=== PATIENT | male | born 1990 | race Caucasian/White ===

== ENCOUNTER 2023-11-19 10:14 | Emergency (ER) | payer OTHER, SELFPAY ==
--- NOTE | 2023-11-19 10:23 | XR_ITS ---
FINAL REPORT CLINICAL HISTORY: fever, productive cough COMPARISON: 03/19/2019 FINDINGS: The cardiac silhouette is normal. The mediastinal and hilar structures are unremarkable. The lungs are clear. There is no pneumothorax. IMPRESSION: No acute cardiopulmonary process. Reviewed, Interpreted and Dictated by Elham Wesley MD Transcribed by LELO Nichols Authenticated and [facility]
[2023-11-19 10:25] VITALS: BP 126/78; PULSE 111; RESP 16; TEMP 37.6; O2SAT 97; BMI 19.0
--- NOTE | 2023-11-19 10:25 | ED_ITS ---
Discharge Plan Disposition Patient Disposition: Home, Self-Care Condition: Good Prescriptions Prescriptions: New ondansetron 4 mg tablet,disintegrating 4 mg PO Q6H PRN (Reason: nausea and vomiting) Qty: 14 0RF guaifenesin [Mucinex] 600 mg tablet extended release 12hr 600 mg PO BID PRN (Reason: cough) Qty: 10 0RF No Action bupropion HCl 150 MG tablet sustained-release 12 hr 150 mg PO DAILY mirtazapine 15 MG tablet 15 mg PO DAILY prazosin 1 MG capsule 1 mg PO DAILY Referrals Follow up/Referrals: Provider,Referral, [Primary Care Provider] - See instructions Clinical Impressions Clinical Impression: Viral infection Instructions Patient Instructions: DI for Viral Upper Respiratory Infection -- Adult Discharge ED Provider: Tim Garcia General Adult HPI General Chief complaint: Upper Respiratory Infection Stated complaint: fever, vomiting Time Seen by Provider: 11/19/23 10:18 History of Present Illness HPI narrative: Patient is an otherwise healthy 33-year-old male presenting due to nausea and vomiting. Patient's mother is present to help provide history. Patient states for the past 4 days he has had continuous nausea and vomiting. He has also had subjective fevers and chills and bodyaches. Notes he has had pain in his chest which radiates to the throat, believes this is due to vomiting. States he has had cough productive of brownish sputum. Denies any diarrhea. States he has been able to urinate but has noticed foul odor. Denies any dysuria. Denies any significant abdominal pain. States he took ibuprofen at home which helped slightly. He is unsure of any sick contacts. Denies any medications today prior to arrival. Related Data Home Medications Medication Instructions Recorded Confirmed prazosin 1 mg capsule 1 mg PO DAILY ptsd 01/09/18 03/19/19 bupropion HCl 150 mg tablet,12 hr 150 mg PO DAILY Depression 03/19/19 03/19/19 sustained-release mirtazapine 15 mg tablet 15 mg PO DAILY Insomnia 03/19/19 03/19/19 Previous Rx's Medication Instructions Recorded guaifenesin 600 mg tablet, 600 mg PO BID PRN cough #10 tabs 11/19/23 extended release 12 hr (Mucinex) ondansetron 4 mg disintegrating 4 mg PO Q6H PRN nausea and 11/19/23 tablet vomiting #14 tabs Allergies Allergy/AdvReac Type Severity Reaction Status Date / Time amoxicillin [AMOXICILLIN] Allergy Unknown Verified 01/09/18 16:05 ceftizoxime [CEFTIZOXIME] Allergy Unknown Verified 01/09/18 16:05 Penicillins [PENICILLINS] Allergy Unknown Verified 01/09/18 16:05 [facility] Disclaimer: The information contained in this section may have been updated after the patient was seen, as this information can be updated by other users. Social History Smoking Status: Current every day smoker tobacco type: cigarettes packs per day: 1 alcohol intake: never substance use type: marijuana current occupational status: unemployed Travel in the last 8 weeks: None ROS Obtained: Yes All systems reviewed & no additional complaints except as documented Constitutional Constitutional: Reports body ache, Reports chills and Reports fever(s) Cardiovascular Cardiovascular: Reports chest pain Respiratory Respiratory: Reports change in phlegm color and Reports cough Gastrointestinal Gastrointestingal: Reports nausea and vomiting Physical Exam General General appearance: alert and in no apparent distress Head Head exam: atraumatic, normocephalic and normal inspection Eye Eye exam: Present normal appearance, PERRL and EOMI ENT ENT exam: Present normal exam, mucous membranes moist, TM's normal bilaterally and normal external ear exam Expanded ENT Exam Throat exam: Present tonsillar erythema Neck Neck exam: Present normal inspection, full ROM and trachea midline; Absent meningismus or lymphadenopathy Chest Chest inspection: Present normal inspection and symmetric chest wall rise; Absent tenderness Respiratory Respiratory exam: Present normal lung sounds bilaterally; Absent respiratory distress Cardiovascular Cardiovascular exam: Present regular rate and normal rhythm; Absent JVD Abdominal Exam Abdominal exam: Present soft and normal bowel sounds; Absent distention, tenderness or guarding Extremities Exam Extremities exam: Present normal inspection, full ROM and normal capillary refill; Absent calf tenderness Back Exam Back exam: Present normal inspection; Absent tenderness Neurological Exam Neurological exam: Present alert and oriented X3 Psychiatric Psychiatric exam: Present normal affect and normal mood Skin Skin exam: Present warm, dry, intact and normal color Lymphatic Lymphatic Findings: no adenopathy Medical Decision Making Abimael Inquiry Pt receiving controlled substance: No Abimael was queried for this patient: No Vital Signs: 11/19/23 10:25 11/19/23 10:30 Temperature 99.7 F H Temperature Source Oral Pulse Rate 74 Pulse Rate [Left] 111 H Respiratory Rate 16 Blood Pressure 127/76 Blood Pressure [Right Arm] 126/78 Blood Pressure Mean [Right Arm] 94 Blood Pressure Source [Right Arm] Automatic Cuff Blood Pressure Position [Right Arm] Sitting 02 Sat by Pulse Oximetry 97 95 Oxygen Delivery Method Room Air Lab Data Lab Results 11/19/23 10:27: WBC 7.6, RBC 5.13, Hgb 17.6, Hct 51.7, MCV 100.8 H, MCH 34.2 H, MCHC 33.9, RDW 14.0, Plt Count 131 L, MPV 8.1, Neut % (Auto) 70.8, Lymph % (Auto) 15.4, Hitchcock % (Auto) 11.8 H, Eos % (Auto) 0.2, Baso % (Auto) 1.9, Neut # (Auto) 5.4, Lymph # (Auto) 1.2, Hitchcock # (Auto) 0.9, Eos # (Auto) 0.0, Baso # (Auto) 0.1, Sodium 137, Potassium 3.9, Chloride 103, Carbon Dioxide 30, Anion Gap 7.9, BUN 12, Creatinine 0.90, Estimated Creat Clear 105, Estimated GFR 97, Est GFR ( Amer) 118, Glucose 137 H, Calcium 9.4, Total Bilirubin 1.2, AST 80 H, ALT 48, Alkaline Phosphatase 72, Total Protein 7.0, Albumin 4.1, Globulin 2.9, Albumin/Globulin Ratio 1.4, Lipase 12 L, SARS-CoV-2 (PCR) Not detected, Influenza A Untype (PCR) Not detected, Influenza Type B (PCR) Not detected 11/19/23 10:30: Urine Color Dark yellow, Urine Appearance Sl cloudy, Urine pH 6.5, Ur Specific Nunn[place] 1.020, Urine Protein 1+, Urine Glucose (UA) Negative, Urine Ketones 3+, Urine Blood Trace-i, Urine Nitrate Negative, Urine Bilirubin 2+ A, Urine Urobilinogen 4.0, Ur Leukocyte Esterase Negative, Urine RBC 5-10, Urine WBC Occasional, Ur Squamous Epith Cells Occasional, Urine Bacteria Trace, Urine Mucus 1+ 11/19/23 10:27 11/19/23 10:27 Orders (Tests/Meds): ED MEDICATIONS Discontinued Medications Generic Name Dose Route Start Last Admin Trade Name Freq PRN Reason Stop Dose Admin Acetaminophen 1,000 mg 11/19/23 10:38 11/19/23 10:47 Acetaminophen 500mg Tab PO 11/19/23 10:39 1,000 mg ONCE ONE Administration Lactated Ringer's 1,000 mls @ 999 mls/hr 11/19/23 10:23 11/19/23 10:37 Lactated Ringer's 1000 Ml Bag IV 11/19/23 11:23 999 mls/hr .Q1H1M ONE Administration Ketorolac Tromethamine 15 mg 11/19/23 10:23 11/19/23 10:37 Ketorolac 30mg/Ml Vial IV 11/19/23 10:24 15 mg ONCE ONE Administration Ondansetron HCl 4 mg 11/19/23 10:23 11/19/23 10:36 Ondansetron 4mg/2ml Vial IV 11/19/23 10:24 4 mg ONCE ONE Administration ORDERS Category Date Time Status CXR --portable [XR chest portable] Stat Exams 11/19/23 10:23 Completed CBC w/Auto Diff [Complete Blood Count Auto Diff] Stat Lab 11/19/23 10:27 Completed CMP [Comprehensive Metabolic Panel] Stat Lab 11/19/23 10:27 Completed Lipase Stat Lab 11/19/23 10:27 Completed Rapid PCR Covid and Flu A/B Stat Lab 11/19/23 10:27 Completed Urinalysis and Microscopic Stat Lab 11/19/23 10:30 Completed ECG Data Tracing #1: I reviewed this ECG and interpreted as documented below: EKG obtained and read by me showing normal sinus rhythm with biatrial enlargement, no signs of acute ischemia. Medical Decision Narrative: In summary, patient is a 33-year-old male, evaluated in the emergency department today due to nausea, vomiting, cough, body aches. On arrival, patient is tachycardic but hemodynamically stable, otherwise normal vital signs. On examination, patient has oropharyngeal erythema but is overall well-appearing. Differential diagnosis includes but is not limited to influenza, COVID, pneumonia, other viral infection. Patient given 1 L LR bolus, IV Zofran, IV Toradol. Workup initiated including CBC, CMP, lipase, COVID/flu, EKG, CXR. Labs independently interpreted by me and significant for no acute abnormalities. Imaging independently interpreted by me and significant for CXR showing no pneumonia, otherwise no acute findings. On reevaluation, patient reports significant improvement in symptoms and is tolerating oral intake. Given his history, he most likely has viral infection contributing to symptoms. He is appropriate for discharge at this time. Prescriptions for Zofran and Mucinex provided. Patient counseled on home care, given strict return precautions and agreeable to plan. Additional history was provided by mother. I considered admitting the patient to the hospital for observation, and in shared decision-making with patient, decided on outpatient management. Critical Care Critical Care Time Critical Care Time: No
[2023-11-19 10:30] VITALS: BP 127/76; PULSE 74; O2SAT 95
[2023-11-19 10:35] LABS: Microscopic, Urine URINE MICROSCOPIC (MICROSCOPIC)
[2023-11-19 10:35] LABS: Coronavirus 19, PCR Not Detected (NotDetected); Influenza A, PCR Not Detected (NotDetected); Influenza B, PCR Not Detected (NotDetected)
[2023-11-19] MEDS: ONDANSETRON 4MG/2ML VIAL 4 MG IV (10:36)
[2023-11-19] MEDS: KETOROLAC 30MG/ML VIAL 15 MG IV (10:37)
[2023-11-19] MEDS: LACTATED RINGERS 1000ML 1,000 ML 999 ML IV (10:37)
[2023-11-19 10:38] LABS: Appearance,Urine SL CLOUDY (Clear); Blood, Urine TRACE-I (Negative); Color,Urine DARK YELLOW (Yellow); Glucose,Urine (UA) Negative (Negative); Ketones,Urine 3+ (Negative); Leukocyte Esterase,Urine Negative (Negative); Nitrate,Urine Negative (Negative); PH,Urine 6.5 (5.0-8.5); Protein,Urine 1+ (Negative)
--- NOTE | 2023-11-19 10:39 | ECG_ITS ---
APPROVED REPORT Exam: Resting ECG HR:79 bpm ECG Measurements Heart Rate 79 AXES NV 161 P 82 QRSd 101 QRS 267 QT 338 T 71 QTc 373 Conclusion SINUS RHYTHM POSSIBLE RIGHT ATRIAL ENLARGEMENT [0.25mV P-WAVE] POSSIBLE LEFT ATRIAL ENLARGEMENT [-0.1mV P-WAVE IN V1/V2] INDETERMINATE AXIS INCOMPLETE RIGHT BUNDLE BRANCH BLOCK [90+ ms QRS DURATION, TERMINAL R IN V1/V2, 40+ ms S IN I/aVL/V4/V5/V6] SEPTAL MYOCARDIAL INFARCTION , OF INDETERMINATE AGE [40+ ms Q WAVE IN V1/V2] Electronically signed by : JAMIL COX, 11/19/2023 23:23:34
[2023-11-19 10:40] LABS: Bilirubin,Urine 2+ (Negative)
[2023-11-19 10:42] LABS: Basophils # 0.1 K/mm3 (0-0.2); Basophils % 1.9 % (0.1-2.0); Eosinophils % 0.2 % (0.1-12.0); Hematocrit 51.7 % (42.0-52.0); Hemoglobin 17.6 g/dL (14.1-18.0); Lymphocytes # 1.2 K/mm3 (0.7-4.5); Lymphocytes % 15.4 % (10-50); Mean Corpuscular HGB Conc 33.9 g/dL (31.8-35.4); Mean Corpuscular Hemoglobin 34.2 pg (27.0-31.2); Mean Corpuscular Volume 100.8 fl (80-94); Mean Platelet Volume 8.1 fl (7.4-10.4); Monocytes # 0.9 K/mm3 (0.1-1.0); Monocytes % 11.8 % (1.7-9.3); Neutrophils # 5.4 K/mm3 (1.8-7.8); Neutrophils % 70.8 % (37.0-80.0); Platelet Count 131 K/mm3 (142-424); Red Blood Count 5.13 M/mm3 (4.60-6.20); White Blood Count 7.6 K/mm3 (4.8-10.8)
--- NOTE | 2023-11-19 10:42 | PC.NURSE ---
I rounded on the pt and took him a cup of water. pt did not voice any other needs at this time.
[2023-11-19 10:47] LABS: Chloride 103 mmol/L (98-107); Potassium 3.9 mmoL/L (3.5-5.1); Sodium 137 mmol/L (136-145)
[2023-11-19] MEDS: ACETAMINOPHEN 500MG TAB 1000 MG PO (10:47)
[2023-11-19 10:50] LABS: Alanine Aminotransferase 48 U/L (12-78); Albumin Level 4.1 g/dl (3.5-5.0); Albumin/Globulin Ratio 1.4 (1.1-1.8); Alkaline Phosphatase 72 U/L (38-126); Anion Gap 7.9 mEq/L (5-15); Aspartate Amino Transferase 80 U/L (17-59); Bilirubin,Total 1.2 mg/dl (0.2-1.3); Blood Urea Nitrogen 12 mg/dl (9-20); Calcium 9.4 mg/dl (8.4-10.2); Carbon Dioxide 30 mmol/L (22.0-30.0); Creatinine Clearance Estimated 105 mL/min (50-200); Estimated Glomerular Filt Rate 97 ml/min (>60); GFR (African American) 118 ML/MIN (>60); Globulin 2.9 g/dL (1.3-3.2); Glucose 137 mg/dl (74-100); Lipase 12 U/L (23-300)
[2023-11-19 10:57] LABS: Bacteria,Urine Trace /lpf; Mucus,Urine 1+ /lpf; Squamous Epithelial Cell,Urine Occasional #/hpf (0-5); WBC,Urine Occasional #/hpf (0-3)
[2023-11-19 12:44] VITALS: BP 127/76; PULSE 74; RESP 16; TEMP 37.6; O2SAT 95
== END 2023-11-19 12:44 | disposition home or self-care (01) ==
PROVIDERS: Emergency Provider Student in an Organized Health Care Education/Training Program
DX: R11.2 Nausea with vomiting, unspecified (principal); R50.9 Fever, unspecified; R05.9 Cough, unspecified; B34.9 Viral infection, unspecified; F17.210 Nicotine dependence, cigarettes, uncomplicated; M79.18 Myalgia, other site; Z56.0 Unemployment, unspecified
CPT/HCPCS: 71045; 80053; 81001; 83690; 85025; 87636; 93005; 96361; 96374; 96375; 99284; J2405